=== PATIENT | male | born 1995 | race African-American/Black ===

== ENCOUNTER 2017-02-11 00:36 | Emergency (ER) | payer BC ==
[~2017-02-11] VITALS: Ht 167.6 cm; Wt 61.0 kg
[~2017-02-11 00:36] MED LIST: MOTRIN600 MG PO; ZOFRAN ODT4 MG PO
[2017-02-11 01:03] LABS: HEMATOCRIT 42.2 % (38.0-50.0); MCHC 34.8 G/DL (30.0-36.0); MCV 86.1 FL (86-99); MEAN PLAT.VOLUME 8.6 uM^3 (9.0-12.4); PLATELET COUNT 272 K/uL (156-360); RBC DIS.WIDTH-CV 11.3 % (11.8-14.6); RBC DIS.WIDTH-SD 35.4 % (39-53); WHITE BLOOD COUNT 6.2 K/uL (4.1-10.2)
[2017-02-11 01:17] LABS: CHLORIDE 103 mEq/L (99-109)
[2017-02-11 01:18] LABS: POTASSIUM 4.1 mEq/L (3.7-5.4); SODIUM 138 mEq/L (136-147)
[2017-02-11 01:20] LABS: GLUCOSE 131 mg/dL (70-99)
[2017-02-11 01:21] LABS: ANION GAP 9 MEQ/L (2-14)
[2017-02-11 01:22] LABS: TOTAL BILIRUBIN 0.5 mg/dL (0.0-1.0)
[2017-02-11 01:24] LABS: ALKALINE PHOSPHATASE 59 IU/L (3-129); GFR ESTIMATE (CALCULATED) > 59 mL/min/
[2017-02-11 01:25] LABS: UREA NITROGEN (BUN) 12 mg/dL (9-23)
[2017-02-11 01:39] LABS: LIPASE 58 U/L (1.0-51.0)
[2017-02-11 03:39] LABS: ADD MIUA? YES; BILIRUBIN NEGATIVE; BLOOD NEGATIVE; COLOR STRAW ((YELLOW)); GLUCOSE (STRIP) NEGATIVE; KETONES NEGATIVE; LEUKOCYTES TRACE; NITRITE NEGATIVE; PROTEIN (STRIP) NEGATIVE; SPECIFIC GRAVITY 1.018 (1.000-1.030); UROBILINOGEN 0.2 MG/DL (0.2-1.0)
[2017-02-11 03:52] VITALS: BP 144/100
[2017-02-11 03:52] LABS: BACTERIA NONE SEEN /HPF; EPITHELIAL CELLS RARE /HPF; MUCUS NONE SEEN /LPF; RED BLOOD CELLS 0-5 /HPF (0-5); UCUL ADDED? NO
[2017-02-12] MEDS ORDERED: CIPRO500 MG PO (00:34)
[2017-02-12] MEDS ORDERED: FLAGYL500 MG PO (00:34)
== END 2017-02-11 03:53 | disposition home or self-care (01) ==
LOC: EME 00:36
DX: A08.39 Other viral enteritis (principal)
CPT/HCPCS: 74177; 80053; 81003; 83690; 85027; 99281; 99285; J2270; J2405

== ENCOUNTER 2017-02-11 23:14 | Emergency (ER) | payer BC ==
[~2017-02-11] VITALS: Ht 160 cm; Wt 62.0 kg
[2017-02-11 23:52] LABS: HEMATOCRIT 39.1 % (38.0-50.0); MCH 30.3 PG (29.0-34.0); MCHC 35.8 G/DL (30.0-36.0); MCV 84.6 FL (86-99); MEAN PLAT.VOLUME 9.3 uM^3 (9.0-12.4); PLATELET COUNT 231 K/uL (156-360); RBC DIS.WIDTH-CV 11.2 % (11.8-14.6); RBC DIS.WIDTH-SD 34.5 % (39-53); RED BLOOD COUNT 4.62 M/uL (4.00-5.50); WHITE BLOOD COUNT 6.8 K/uL (4.1-10.2)
[2017-02-12 00:02] LABS: CHLORIDE 103 mEq/L (99-109); POTASSIUM 3.8 mEq/L (3.7-5.4); SODIUM 134 mEq/L (136-147)
[2017-02-12 00:06] LABS: ANION GAP 10 MEQ/L (2-14)
[2017-02-12 00:07] LABS: TOTAL BILIRUBIN 0.5 mg/dL (0.0-1.0)
[2017-02-12 00:08] LABS: ALKALINE PHOSPHATASE 47 IU/L (3-129); GFR ESTIMATE (CALCULATED) > 59 mL/min/
[2017-02-12 00:09] LABS: GLUCOSE 90 mg/dL (70-99); UREA NITROGEN (BUN) 9 mg/dL (9-23)
[2017-02-12] MEDS ORDERED: FLAGYL500 MG PO (00:34)
[2017-02-12] MEDS ORDERED: CIPRO500 MG PO (00:34)
[2017-02-12 02:26] VITALS: BP 136/88
== END 2017-02-12 02:03 | disposition home or self-care (01) ==
LOC: EME 23:14
DX: K52.9 Noninfective gastroenteritis and colitis, unspecified (principal)
CPT/HCPCS: 80053; 81003; 85027; 99281; 99284; J7030